=== PATIENT | male | born 1985 | race Two or more races ===

== ENCOUNTER 2018-11-18 18:41 | Inpatient (IN) | payer SELFPAY ==
[~2018-11-18] VITALS: Ht 180.3 cm; Wt 89.9 kg
--- NOTE | 2018-11-18 18:57 | NUR ---
PT BIBSELF FOR ABD PAIN X 1WEEK; PT AAOX4, -SOB, NAD NOTED, PT TO BED 7, AMBULATORY WITH STEADY GAIT, VSS, PENDING MD JOSE
[2018-11-18] MEDS ORDERED: MAG HYDROX/AL HYDROX/SIMETH 30 ML UDC PO ONE (19:00)
[2018-11-18] MEDS ORDERED: IV NS 0.9% 1,000 ML BAG IV ONE (19:00)
[2018-11-18] MEDS ORDERED: ONDANSETRON HCL/PF 4 MG/2 ML VIAL IVP ONE (19:00)
[2018-11-18] MEDS ORDERED: FAMOTIDINE/PF INJ 20 MG/2 ML VIAL IV ONE ×2 (19:00→19:22)
[2018-11-18 19:06] LABS: BASOPHILS % (AUTO) 0.4 % (0.0-2.0); EOSINOPHILS % (AUTO) 2.4 % (0.0-6.0); HEMATOCRIT 48 % (39-51); HEMOGLOBIN 16.2 g/dL (13.5-17.5); LYMPHOCYTES # (AUTO) 1.8 /CMM (0.8-4.8); LYMPHOCYTES % (AUTO) 23.3 % (20.0-44.0); MEAN CORPUSCULAR HGB CONC 34 g/dl (31.0-36.0); MEAN CORPUSCULAR VOLUME 89 fL (80-96); MONOCYTES # (AUTO) 0.8 /CMM (0.1-1.30); NEUTROPHILS # (AUTO) 4.9 /CMM (1.8-8.9); NEUTROPHILS % (AUTO) 63.9 % (43.0-81.0); PLATELET COUNT (AUTO) 293 /CMM (150-450); RED BLOOD CELL COUNT(AUTO) 5.36 MIL/uL (4.5-6.0); WHITE BLOOD COUNT (AUTO) 7.7 K/uL (4.3-11.0)
[2018-11-18 19:14] LABS: CALCIUM, SERUM 9.2 mg/dL (8.5-10.1); CREATININE 0.9 mg/dL (0.6-1.3); POTASSIUM 4.2 mmol/L (3.5-5.1)
[2018-11-18 19:14] LABS: APPEARANCE,URINE Clear (CLEAR); BILIRUBIN,URINE Negative (NEGATIVE); BLOOD, URINE Negative Ery/uL (NEGATIVE); COLOR,URINE Dark (YELLOW); KETONES,URINE Negative (NEGATIVE); LEUKOCYTE ESTERASE ,URINE Negative (NEGATIVE); NITRITE, URINE Negative (NEGATIVE); PH,URINE 5.5 (5.0-8.0); PROTEIN,URINE 30 mg/dl (NEGATIVE); UGLUCOSE Negative (NEGATIVE); UROBILINOGEN,URINE 0.2 EU/dL (0.2)
[2018-11-18 19:19] LABS: ALBUMIN 3.8 g/dL (3.4-5.0); BILIRUBIN,DIRECT 0.1 mg/dL (0.0-0.2); BILIRUBIN,TOTAL 0.5 mg/dL (0.2-1.0); TOTAL PROTEIN, SERUM 8.2 g/dL (6.4-8.2)
[2018-11-18] MEDS ORDERED: ONDANSETRON HCL/PF 4 MG/2 ML VIAL ONE (19:22)
[2018-11-18] MEDS ORDERED: MAG HYDROX/AL HYDROX/SIMETH 30 ML UDC ONE (19:22)
[2018-11-18 19:29] LABS: BACTERIA,URINE Few /HPF (None Seen); MUCUS,URINE Moderate /LPF (None Seen); SQUAMOUS EPITHELIAL CELL,UR Few /HPF (None Seen); WBC,URINE 0-2 /HPF (0-3)
[2018-11-18] MEDS ORDERED: IOHEXOL-300 100 ML VIAL IV ONE (21:19)
[2018-11-18] MEDS ORDERED: IV NS 0.9% 250 ML IV ONE (21:21)
--- NOTE | 2018-11-18 22:12 | NUR ---
LULY POTTER FOR CT READ.
[2018-11-18] MEDS ORDERED: PIPERACILLIN /TAZOBACTAM 3.375 G in IV D5W 50 ML IV STA (22:29)
--- NOTE | 2018-11-18 22:35 | NUR ---
CALLED , ENVIRONMENTAL SERVICES SPECIALIST SURGEON, LEFT MESSAGE ON VOICEMAIL.
[2018-11-18] MEDS ORDERED: PIPERACILLIN /TAZOBACTAM 3.375 G VIAL IV ONE (22:42)
--- NOTE | 2018-11-18 23:17 | NUR ---
[facility] 321-2
[2018-11-18] MEDS ORDERED: ONDANSETRON HCL/PF 4 MG/2 ML VIAL IVP PRN (23:30)
[2018-11-18] MEDS ORDERED: Z GUARD REMEDY 2 OZ OINT TP PRN (23:30)
[2018-11-18 23:50] VITALS: BP 117/69
--- NOTE | 2018-11-19 | NUR ---
admission note patient admitted to [facility] under derdarian for diverticulitis. patient alert oriented has steady gait. transported from er in . patient oriented to room and how to use bed and call ligth. in no apparent distresss. reports abd pain is mild at this time to lower region at 2/10. bed down locked srx2 verbalized understanding to call for assistance as needed.
--- NOTE | 2018-11-19 00:03 | NUR ---
REPORT GIVEN TO BERENICE CLARK FOR ERWIN; PT WILL BE TRANSPORTED TO [facility] VIA W/C
[2018-11-19] MEDS: IV NS 0.9% 1,000 ML IV PRN ×2 (01:14→09:40)
[2018-11-19] MEDS: MORPHINE SULFATE INJ 2 MG/ML DISP.SYRIN IV PRN ×5 (01:22→21:55)
[2018-11-19] MEDS ORDERED: PIPERACILLIN /TAZOBACTAM 2.25 G VIAL IV ONE (05:51)
[2018-11-19] MEDS ORDERED: PIPERACILLIN /TAZOBACTAM 4.5 G in IV D5W 50 ML IV SCH (06:00)
--- NOTE | 2018-11-19 06:32 | NUR ---
zosyn 4.5 grams started. [facility] charge master analyst had to go and get zosyn from [facility] pharmacy dispensor. only 2.25 grams were available and two will be hung to make the 4.5 gram dose.
[2018-11-19 06:53] LABS: BASOPHILS % (AUTO) 0.4 % (0.0-2.0); EOSINOPHILS % (AUTO) 3.5 % (0.0-6.0); HEMATOCRIT 44 % (39-51); LYMPHOCYTES # (AUTO) 2.3 /CMM (0.8-4.8); LYMPHOCYTES % (AUTO) 29.3 % (20.0-44.0); MEAN CORPUSCULAR HGB CONC 34 g/dl (31.0-36.0); MEAN CORPUSCULAR VOLUME 88 fL (80-96); MONOCYTES # (AUTO) 0.8 /CMM (0.1-1.30); MONOCYTES % (AUTO) 10.2 % (2.0-12.0); NEUTROPHILS # (AUTO) 4.4 /CMM (1.8-8.9); NEUTROPHILS % (AUTO) 56.6 % (43.0-81.0); PLATELET COUNT (AUTO) 267 /CMM (150-450); RED BLOOD CELL COUNT(AUTO) 4.98 MIL/uL (4.5-6.0); WHITE BLOOD COUNT (AUTO) 7.8 K/uL (4.3-11.0)
[2018-11-19 07:14] LABS: ALBUMIN 3.1 g/dL (3.4-5.0); BILIRUBIN,TOTAL 0.7 mg/dL (0.2-1.0); CALCIUM, SERUM 8.2 mg/dL (8.5-10.1); CREATININE 0.9 mg/dL (0.6-1.3); POTASSIUM 4.1 mmol/L (3.5-5.1); TOTAL PROTEIN, SERUM 6.8 g/dL (6.4-8.2)
--- NOTE | 2018-11-19 07:20 | NUR ---
BEDSIDE REPORT GIVEN TO GI SEWELL. PATIENT SEEN IN BED IN NO APPARENT DISTRESS. IV INFUSING TO LEFT AC WITH NO S/S OF INFILTRATION.
[2018-11-19 08:00] VITALS: BP 106/57
--- NOTE | 2018-11-19 08:00 | NUR ---
m/s chief fundraising officer: initial assessment received pt in bed awake, a/ox4 with dx: diverticulitis. pt remains npo. iv fluids infusing well. no c/o n/v/d, but left abdomen still cleaner tube to touch. pt for gi consult and possible surgical consult, pt aware. instructed to call for assistance. will continue to monitor.
--- NOTE | 2018-11-19 09:40 | NUR ---
m/s truck bracer: gi consult dr. stephens at bedside and updated plan of care. pt to start on clear liquid diet and may advance as tolerated per gi. order read back. pt aware. will continue to monitor.
--- NOTE | 2018-11-19 10:10 | NUR ---
m/s car carder: surgeon consult seen and examined by dr. mason and updated plan of care. continue clear liquid for now per dr. mason. will continue to monitor.
--- NOTE | 2018-11-19 10:30 | NUR ---
m/s printer floor covering assistant: md visit seen and examined by gomez (nedrap) at this time and updated plan of care. all questions and concerns answered by gomez.
--- NOTE | 2018-11-19 10:37 | NUR ---
m/s outpatient pharmacy manager: notes c/o 11/27 left abdomen pain, medicated with morphine 2mg ivp by rn. instructed to call for assistance.
--- NOTE | 2018-11-19 11:07 | NUR ---
m/s wood veneer taper: notes pt verbalized relief of abdominal pain. instructed to call for assistance. will continue to monitor.
--- NOTE | 2018-11-19 12:30 | NUR ---
m/s improvement analyst: notes pt tolerated clear liquid diet. no c/o n/v/d, but left abdomen cloth washer back tender to touch. instructed to call for assistance. will continue to monitor.
[2018-11-19] MEDS: PIPERACILLIN /TAZOBACTAM 3.375 G in IV D5W 100 ML IV SCH ×2 (13:08→21:09)
--- NOTE | 2018-11-19 14:00 | NUR ---
m/s package designer: notes resting comfortable in bed with no distress noted. call light within reach.
--- NOTE | 2018-11-19 16:00 | NUR ---
m/s data modeling architect: notes sleeping at interval. no distress noted. will monitor.
[2018-11-19 16:09] VITALS: BP 112/74
--- NOTE | 2018-11-19 17:42 | NUR ---
m/s assignment manager: notes c/o 11/27 left abdomen pain, medicated with morphine 2mg ivp by rn. instructed to call for assistance. at bedside.
--- NOTE | 2018-11-19 18:12 | NUR ---
m/s vehicle controls engineer: notes pt verbalized relief of abdominal pain. instructed to call for assistance. needs attended. no apparent distress noted. will continue to monitor.
--- NOTE | 2018-11-19 19:00 | NUR ---
m/s knotting machine operator portable: notes report given to laura (primary nurse) for continuity of care.
--- NOTE | 2018-11-19 19:00 | NUR ---
ms analy initial notes received report from am nurse René while doing our rounds, pt lying in bed awake and alert with IVF of NS at 125ml/hr infusing on his left AC patent and intact. denies any pain or any discomfort at this time. kept him comfortable at all times. will continue monitoring.
[2018-11-19 20:00] VITALS: BP_SYST 153; BP_SYST 99; BP_DIAS 58; BP_DIAS 69
[2018-11-19 20:26] VITALS: BP 99/54
--- NOTE | 2018-11-19 21:56 | NUR ---
RN NOTES Patient c/o abdominal pain, 12/28. Morphine 2mg given as ordered.
--- NOTE | 2018-11-19 22:30 | NUR ---
MS DONATO NOTES RE- ASSESSMENT PT WATCHING TV AT THIS TIME SEEMS COMFORTABLE AFTER PAIN MEDS GIVEN , FEEL BETTER HE STATED. DENIES ANY N/V . IVF NS AT 125ML/HR STILL INFUSING. APPLE JUICE SERVED AND JUNIOR. WILL CONTINUE MONITORING.
[2018-11-20] MEDS: IV NS 0.9% 1,000 ML IV PRN ×2 (02:33→18:52)
[2018-11-20] MEDS: MORPHINE SULFATE INJ 2 MG/ML DISP.SYRIN IV PRN ×3 (02:38→21:10)
--- NOTE | 2018-11-20 02:41 | NUR ---
MS RN NOTES: PT COMPLAINING OF 8/10 LEFT LOWER ABDOMEN PAIN. PT WAS ADMINISTERED MORPHINE 2MG IV. WILL CONTINUE TO MONITOR.
--- NOTE | 2018-11-20 04:00 | NUR ---
ms social worker assistant note Pt resting comfortably in bed without any discomfort noted. IVF still infusing. will continue monitoring.
[2018-11-20] MEDS: PIPERACILLIN /TAZOBACTAM 3.375 G in IV D5W 100 ML IV SCH ×3 (05:31→21:03)
--- NOTE | 2018-11-20 07:30 | NUR ---
MS SENIOR ELECTRICAL CONTROLS ENGINEER NOTES PT RESTING AT THIS TIME WITHOUT ANY DISCOMFORT NOTED. ALL DUE MEDS GIVEN AND ALL NEEDS MET. STABLE STU THE NIGHT AND SLEPT WELL. IVF STILL INFUSING. KEPT HIM WARM AND COMFORTABLE AT ALL TIMES. PLACE CALL LIGHT AT REACH. ENDORSE TO AM NURSE FOR CONTINUITY OF CARE.
--- NOTE | 2018-11-20 07:44 | NUR ---
RN OPENING NOTES PT SLEEPING COMFORTABLY IN BED. NO APPARENT S/S OF PAIN, DISTRESS OR SOB AT THIS TIME. PT CURRENTLY ON CLEAR LIQUIDS, PER DR SALEH ADVANCE DIET TOLERATED. WILL ASSESS AFTER BREAKFAST TO ADVANCE FOR LUNCH. PT HAS A LEFT AC #18 INTACT AND RUNNING NS @125 ML/HR. SAFETY PRECAUTIONS IN PLACE, BED IN LOWEST LOCKED POSITION, X2 SIDE RAILS UP AND CALL LIGHT WITHIN REACH WILL CONTINUE TO MONITOR.
[2018-11-20 07:52] LABS: BASOPHILS % (AUTO) 0.4 % (0.0-2.0); EOSINOPHILS % (AUTO) 3.8 % (0.0-6.0); HEMATOCRIT 45 % (39-51); HEMOGLOBIN 15.1 g/dL (13.5-17.5); LYMPHOCYTES # (AUTO) 1.9 /CMM (0.8-4.8); LYMPHOCYTES % (AUTO) 26.8 % (20.0-44.0); MEAN CORPUSCULAR HGB CONC 34 g/dl (31.0-36.0); MEAN CORPUSCULAR VOLUME 89 fL (80-96); MONOCYTES # (AUTO) 0.7 /CMM (0.1-1.30); MONOCYTES % (AUTO) 9.1 % (2.0-12.0); NEUTROPHILS # (AUTO) 4.3 /CMM (1.8-8.9); NEUTROPHILS % (AUTO) 59.9 % (43.0-81.0); PLATELET COUNT (AUTO) 290 /CMM (150-450); RED BLOOD CELL COUNT(AUTO) 5.05 MIL/uL (4.5-6.0); WHITE BLOOD COUNT (AUTO) 7.2 K/uL (4.3-11.0)
[2018-11-20 07:56] LABS: CALCIUM, SERUM 8.7 mg/dL (8.5-10.1); MAGNESIUM 2.3 mg/dL (1.8-2.4); PHOSPHORUS 3.3 mg/dL (2.5-4.9); POTASSIUM 4.4 mmol/L (3.5-5.1)
[2018-11-20 08:00] VITALS: BP 111/61
[2018-11-20] MEDS ORDERED: METR500T PO (09:43)
[2018-11-20] MEDS ORDERED: CIPR-262 PO (09:43)
[2018-11-20] MEDS ORDERED: IOHEXOL-300 100 ML VIAL IV ONE (11:33)
[2018-11-20] MEDS ORDERED: IV NS 0.9% 250 ML IV ONE (11:34)
[2018-11-20] MEDS ORDERED: CT SWABBABLE VALVE TRANS SET 1 EA INFUS.SET MC ONE (11:34)
[2018-11-20 16:00] VITALS: BP 115/62
--- NOTE | 2018-11-20 18:08 | NUR ---
RN CLOSING NOTES PT AWAKE RESTING IN BED. NO APPARENT S/S OF PAIN, DISTRESS OR SOB AT THIS TIME. PT DIET ADVANCED TO REGULAR LOW FIBER. PT HAS A LEFT AC #18 INTACT AND RUNNING NS @125 ML/HR. SAFETY PRECAUTIONS IN PLACE, BED IN LOWEST LOCKED POSITION, X2 SIDE RAILS UP AND CALL LIGHT WITHIN REACH. WILL ENDORSE TO DEHYDROGENATION CONVERTER HELPER NURSE FOR CONTINUITY OF CARE.
--- NOTE | 2018-11-20 19:55 | NUR ---
ms spindle tester initial notes pt seen in bed awake and alert lying while watching tv at this time. IVF still infusing on his left AC patent and intact. denies any abdominal pain . diet already advance to low fiber diet. kept him warm and comfortable at all times. will continue monitoring and place call light at reach.
[2018-11-20 20:00] VITALS: BP 119/67
[2018-11-20 20:25] VITALS: BP 119/67
--- NOTE | 2018-11-20 21:10 | NUR ---
MS DONATO NOTES /CO ABDOMINAL PAIN , MORPHINE GIVEN STU IVP BY ANOTHER NURSE AND DUE ANTIBIOTIC ALSO HUNG ORDERED. DENIES ANY N/V . EDUCATE PT FOR POSSIBLE SIDE EFFECT AND PT UNDERSTOOD WELL. AT THE BEDSIDE . WILL CONTINUE MONITORING.
--- NOTE | 2018-11-21 | NUR ---
MS BUILDING DRAFTING OFFICER NOTES PT SLEEPING COMFORTABLY IN BED AFTER PAIN MEDICATION GIVEN EARLIER. BREATHING EVEN AND NON-LABORED. IVF STILL INFUSING ON HIS LEFT AC. NO REDNESS NOTED. WILL CONTINUE MONITORING.
--- NOTE | 2018-11-21 03:00 | NUR ---
MS SPORTS PHYSICIAN NOTES PT REMAIN ASLEEP.
[2018-11-21] MEDS: PIPERACILLIN /TAZOBACTAM 3.375 G in IV D5W 100 ML IV SCH ×2 (04:50→12:07)
--- NOTE | 2018-11-21 07:14 | NUR ---
MS SAMPLE ROOM SUPERVISOR CLOSING NOTES PT REMAINS RESTING WITH EYES CLOSED WITHOUT ANY DISTRESS NOTED. STABLE TUR THE NIGHT. ZOSYN IVP BAG STILL INFUSING, NO ADVERSE REACTION NOTED. ALL DUE MEDS AND ALL NEEDS MET. KEPT HIM WARM AND COMFORTABLE AT ALL TIMES. PLACE CALL LIGHT AT REACH. ENDORSE TO AM NURSE DEBBY /RN FOR CONTINUITY OF CARE
[2018-11-21 07:20] LABS: BASOPHILS % (AUTO) 0.3 % (0.0-2.0); HEMATOCRIT 45 % (39-51); LYMPHOCYTES # (AUTO) 2.1 /CMM (0.8-4.8); LYMPHOCYTES % (AUTO) 31.2 % (20.0-44.0); MEAN CORPUSCULAR HGB CONC 34 g/dl (31.0-36.0); MEAN CORPUSCULAR VOLUME 88 fL (80-96); MONOCYTES # (AUTO) 0.6 /CMM (0.1-1.30); MONOCYTES % (AUTO) 8.6 % (2.0-12.0); NEUTROPHILS # (AUTO) 3.8 /CMM (1.8-8.9); NEUTROPHILS % (AUTO) 55.9 % (43.0-81.0); PLATELET COUNT (AUTO) 334 /CMM (150-450); RED BLOOD CELL COUNT(AUTO) 5.04 MIL/uL (4.5-6.0); WHITE BLOOD COUNT (AUTO) 6.8 K/uL (4.3-11.0)
--- NOTE | 2018-11-21 07:25 | NUR ---
M/S RN OPENING NOTES RECEIVED PATIENT ON BED A/O X 4, RESPONSIVE TO ALL STIMULI, ABLE TO MAKE NEEDS KNOWN. RESPIRATION EVEN AND NON LABORED WITH NO PRESENCE OF ACUTE RESPIRATORY DISTRESS. ABDOMEN SOFT AND NON DISTENDED WITH ACTIVE BOWEL SOUNDS. SKIN WARM TO TOUCH AND DRY. DENIES PAIN AND DISCOMFORT. IV SITE AT LEFT AC WITH NO S/SX ON INFILTRATION, PATENT IN FLUSHING. ALL CONCERNS ADDRESSED. PLACED CALL LIGHT WITHIN REACH FOR SAFETY. WILL CONTINUE TO MONITOR CARE.
[2018-11-21 07:39] LABS: CALCIUM, SERUM 8.7 mg/dL (8.5-10.1); MAGNESIUM 2.2 mg/dL (1.8-2.4); PHOSPHORUS 4.3 mg/dL (2.5-4.9); POTASSIUM 3.8 mmol/L (3.5-5.1)
[2018-11-21 08:00] VITALS: BP 103/60
--- NOTE | 2018-11-21 09:28 | NUR ---
M/S RN NOTES PATIENT SEEN AND EVALUATED BY DR. SOLORIO
--- NOTE | 2018-11-21 10:30 | NUR ---
M/S RN NOTES PATIENT FOUND ASLEEP BUT EASY AROUSABLE, NO PAIN NOTED.
[2018-11-21] MEDS: IV NS 0.9% 1,000 ML IV PRN (11:00)
[2018-11-21] MEDS: MORPHINE SULFATE INJ 2 MG/ML DISP.SYRIN IV PRN (12:20)
--- NOTE | 2018-11-21 15:20 | NUR ---
M/S RN NOTES PATIENT INFORMED FOR NEW ORDER OF DISCHARGE, PO ATB ORDERED. ASKED REGARDING PAIN MEDICATION AT DISCHARGE. PER PATIENT HE TAKES IBUPROFEN 600 MG AND LAST FOR SHORT TERM AND ASKING IF NARCOTIC MEDICATION SUCH TRAMADOL CAN BE GIVEN. REFERRED LIZETH AND ADVISED PT TO TAKE TYLENOL INSTEAD. FOR WORSENING OF PAIN, CALL 911 OR GO TO ER. PT VERBALIZED UNDERSTANDING.
[2018-11-21 15:30] VITALS: BP 118/67
--- NOTE | 2018-11-21 17:00 | NUR ---
M/S CLAY MAKER NOTES PATIENT DISCHARGED ACCOMPANIED BY ASSISTED BY MICHAEL LITTLE) AT THE PARKING LOT. A/O X 4, NO PRESENCE OF ACUTE RESPIRATORY DISTRESS, LUNGS CLEARED BILATERALLY. DENIES PAIN AND DISCOMFORT. ABD SOFT AND NON DISTENDED WITH ACTIVE BOWEL SOUNDS. SKIN WARM TO TOUCH, INTACT AND DRY. IV LINE TAKEN OFF AND TOLERATED WELL. EXIT CARE PROVIDED WITH ALL CONCERNS ATTENDED. PATIENT DISCHARGE IN SAFE AND STABLE CONDITION.
== END 2018-11-21 17:00 | disposition home or self-care (01) | DRG 392 ==
LOC: ER 18:49 → MED 23:18
PROVIDERS: ADMIT Internal Medicine; ATTEND Nurse Practitioner Acute Care
DX: K57.20 Diverticulitis of large intestine with perforation and abscess without bleeding (principal)
CPT/HCPCS: 36415; 71045-TC; 80048-TC; 80053-TC; 80061-TC; 80076-TC; 81000-TC; 83690-TC; 83735-TC; 84100-TC; 85025-TC; 87081-TC; G0378; J2270; J2405; J2543; J3490; J7030; J7050; J7060; Q9967

== ENCOUNTER 2019-02-25 22:52 | Emergency (ER) | payer MEDICAID ==
[~2019-02-25] VITALS: Ht 182.9 cm; Wt 90.7 kg
[~2019-02-25 22:52] MED LIST: CIPR-262 PO; METR500T PO
[2019-02-25] MEDS ORDERED: ONDANSETRON HCL/PF 4 MG/2 ML VIAL IVP ONE (23:30)
[2019-02-25] MEDS ORDERED: IV NS 0.9% 1,000 ML BAG IV ONE (23:30)
[2019-02-25] MEDS ORDERED: MORPHINE SULFATE INJ 2 MG/ML DISP.SYRIN IV ONE (23:30)
[2019-02-25] MEDS ORDERED: MORPHINE SULFATE INJ 4 MG/ML DISP.SYRIN ONE (23:35)
[2019-02-25] MEDS ORDERED: ONDANSETRON HCL/PF 4 MG/2 ML VIAL ONE (23:35)
[2019-02-25 23:39] LABS: BASOPHILS % (AUTO) 0.2 % (0.0-2.0); EOSINOPHILS % (AUTO) 6.8 % (0.0-6.0); HEMATOCRIT 45 % (39-51); HEMOGLOBIN 15.5 g/dL (13.5-17.5); LYMPHOCYTES # (AUTO) 1.1 /CMM (0.8-4.8); LYMPHOCYTES % (AUTO) 9.7 % (20.0-44.0); MEAN CORPUSCULAR HGB CONC 35 g/dl (31.0-36.0); MEAN CORPUSCULAR VOLUME 87 fL (80-96); MONOCYTES # (AUTO) 1.3 /CMM (0.1-1.30); MONOCYTES % (AUTO) 11.2 % (2.0-12.0); NEUTROPHILS # (AUTO) 8.5 /CMM (1.8-8.9); NEUTROPHILS % (AUTO) 72.1 % (43.0-81.0); PLATELET COUNT (AUTO) 282 /CMM (150-450); RED BLOOD CELL COUNT(AUTO) 5.13 MIL/uL (4.5-6.0); WHITE BLOOD COUNT (AUTO) 11.8 K/uL (4.3-11.0)
--- NOTE | 2019-02-25 23:45 | NUR ---
BIBSELF FROM HOME TO ER BED 9. AAOX4. NO RESP DISTRESS NOTED. AMBULATORY. C/O LLQ ABDOMINAL PAIN X 4 DAYS. PT REPORTS PAIN 8/10 SHARP STABBING INTERMITENT PAIN. HE REPORTS HE HAD DIVERTICULITIS AND FEELS THE SAME. PT REPORTS HAVING FEVER 2 DAYS AGO. HE ALSO REPORTS THAT HAVING BM IS VERY PAINFUL. MD AT BEDSIDE FOR EVAL. ORDERS, RECEIVED NOTED AND CARRIED OUT.
--- NOTE | 2019-02-25 23:47 | NUR ---
IV LINE OBTAINED ON R AC 19G. BLOOD DRAWN AND GIVEN TO CLOTH SHRINKING MACHINE OPERATOR AT BEDSIDE
[2019-02-25 23:50] LABS: CALCIUM, SERUM 8.6 mg/dL (8.5-10.1)
[2019-02-25] MEDS ORDERED: CIPROFLOXACIN IV RTU 200 ML IV ONE (23:58)
[2019-02-25] MEDS ORDERED: METRONIDAZOLE 500MG/ NS 100ML 100 ML IV ONE (23:58)
[2019-02-26] MEDS ORDERED: CIPROFLOXACIN IV RTU 400 MG in PREMIX 1 EA IV SCH ×2
[2019-02-26] MEDS ORDERED: FLAGYL/NS RTU 500 MG/100 ML PIGGYBACK IV ONE
[2019-02-26] MEDS ORDERED: MORPHINE SULFATE INJ 4 MG/ML DISP.SYRIN ONE (01:25)
[2019-02-26] MEDS ORDERED: ONDANSETRON HCL/PF 4 MG/2 ML VIAL ONE (01:25)
--- NOTE | 2019-02-26 01:31 | NUR ---
PT COMPLAINED OF LLQ ABD PAIN, 6/10 SHARP STABBING. MD MADE AWARE. RECEIVED VERBAL ORDER TO GIVE MORPHINE 4MG IV X1 AND ZOFRAN 4MG IV X1. NOTED AND CARRIED OUT
[2019-02-26] MEDS ORDERED: MORPHINE SULFATE INJ 4 MG/ML DISP.SYRIN IV ONE (02:00)
[2019-02-26] MEDS ORDERED: ONDANSETRON HCL/PF 4 MG/2 ML VIAL IV ONE (02:00)
--- NOTE | 2019-02-26 02:35 | NUR ---
Patient discharged to home in stable condition. Written and verbal after care instructions given. Patient verbalizes understanding of instruction.IV removed. Catheter intact and site benign. Pressure and 4x4 applied to site. No bleeding noted. Pt ambulatory with a steady gait
[2019-02-26 02:36] VITALS: BP 123/73
== END 2019-02-26 02:37 | disposition home or self-care (01) ==
LOC: ER 23:00
DX: K57.92 Diverticulitis of intestine, part unspecified, without perforation or abscess without bleeding (principal)
CPT/HCPCS: 36415; 80048; 83690; 85025; 85730; 96365; 96367; 96375; 96376; 99283; A4216; J0744 ×2; J2270 ×2; J2405 ×2; J3490; J7030